=== PATIENT | male | born 1975 | race Caucasian/White ===

== ENCOUNTER 2016-07-08 16:58 | Emergency (ER) | payer OTHER ==
--- NOTE | 2016-07-08 17:46 | DIAGNOSTIC IMAGING REPORT ---
PROCEDURE: CT HEAD WITHOUT CONTRAST INDICATION: Headache. Near-syncope. TECHNIQUE: Noncontrast axial images with sagittal and coronal reformations. COMPARISON: Compared to a head CT on 12/12/2006. FINDINGS: Brain and ventricles are normal. No evidence of an acute process or hemorrhage. Sinuses and mastoids are normal. IMPRESSION: 1. Negative head CT. 2. Findings discussed with Dr. Salgado at [address] scans at this facility use dose modulation, iterative reconstruction, and/or weight-based dosing when appropriate to reduce radiation dose to as low as reasonably achievable.
--- NOTE | 2016-07-08 17:53 | DIAGNOSTIC IMAGING REPORT ---
PROCEDURE: XR CHEST 2 VIEW INDICATION: LIGHTHEADEDNESS TECHNIQUE: PA and lateral views. COMPARISON: Compared to chest x-ray and 02/02/2010. FINDINGS: Allowing for overlying wires and electrodes, lungs are clear. Heart and mediastinum are normal. Thorax is normal. IMPRESSION: 1. Negative chest.
--- NOTE | 2016-07-08 19:04 | ED CLINICAL REPORT ---
Clinical Report - Physicians/Mid Levels [facility] [address] [place] [address] 07/08/2016 16:59 Patient: AMARILIS HUBBARD Time Seen: 17:19. Arrived- By private vehicle. Historian- patient. HISTORY OF PRESENT ILLNESS Chief Complaint: HEADACHE. Is still present. This started just prior to arrival. It was gradual in onset and has been waxing/waning. Onset during light activity; [place] It is described as similar to previous headaches, tightness and pressure. No neck pain. Not located in the facial region. At its maximum, severity described as severe. When seen in the E.D., severity described as moderate. Modifying factors: worsened by general movement; relieved by rest. The patient has had blurred vision. No photophobia, numbness, weakness or vomiting. Similar symptoms previously: Recent medical care: The patient was seen recently at another facility in the emergency department. Seen for similar symptoms. Evaluation/treatment: labs. Diagnosis: (abdominal pain; htn). ( He had an ultrasound of his abdomen yesterday. He has had multiple visits to [facility] ED in past 2 months with extensive work up performed). REVIEW OF SYSTEMS No fever, muscle aches, ear pain, sore throat or chest pain. No difficulty breathing, cough, abdominal pain, diarrhea or pain with urination. No skin rash. He has had sinus pressure and dizziness described as a light-headedness. All systems otherwise negative, except as recorded above. PAST HISTORY Primary physician: Dr Loyd ([facility]). 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 Thyroid disease. Urinary calculi. Surgeries: Coronary Angiogram - done about 6 weeks ago at [facility] (50-75% LAD lesion not felt amenable to stent). Lithotripsy has been performed twice (had lithotrypsy at [facility]) - had stents placed after lithotripsy). SOCIAL HISTORY Smoker- current status unknown. Alcohol use. (rare). History of drug use none for about 2 months: marijuana. Residence: [place]. ADDITIONAL NOTES The nursing notes have been reviewed. PHYSICAL EXAM Vital Signs: 07/08/2016 17:09 BP: 146/79. HR: 93. RR: 18. O2 saturation: 98%. Temp: 98.3 F. Pain level now: 0/10. Appearance: Alert. Patient in mild distress. Head: No tenderness to palpation/percussion over the sinuses or temporal artery tenderness. Eyes: Pupils equal, round and reactive to light. Eyes normal inspection. No conjunctival findings, photophobia or shallow angle. ENT: Pharynx normal. No pharyngeal erythema or tonsillar exudate. Neck: Normal inspection. Neck supple. No meningeal signs or carotid bruit. CVS: Normal heart rate and rhythm. Heart sounds normal. Pulses normal. Respiratory: No respiratory distress. Breath sounds normal. Abdomen: Soft and nontender. Back: Normal inspection. Skin: Skin warm and dry. Normal skin color. No rash. Normal skin turgor. Extremities: Extremities exhibit normal ROM. No lower extremity edema. Neuro: Oriented X 3. Alert. Mood/affect normal. Speech normal. Cranial nerves normal (as tested). No cerebellar findings. No motor deficit. No sensory deficit. Reflexes normal. Reflex exam: right biceps 2+, left biceps 2+, right patellar 2+, left patellar 2+, right Achilles 1+ and left Achilles 1+. LABS, X-RAYS, AND EKG EKG: EKG time: (17:58). No acute process. Normal EKG. Normal sinus rhythm. Rate: 75. Normal P waves. Normal DEEPTHI. Normal QRS complex. Nondiagnostic Q waves in lead III. Normal axis. Normal ST and T waves. The study has been interpreted contemporaneously by me. The EKG appears to be a good tracing. Rhythm Strip #1: Normal sinus rhythm. Regular rhythm. Narrow QRS complexes. No ectopy. Chest X-ray: No acute disease. Normal lung markings present. Normal heart size. Mediastinum normal. Great vessels normal. No infiltrate. Views: PA and lateral. Technique: good. The X-rays were interpreted contemporaneously by me. The X-rays were discussed with the radiologist (via PACS report). CT Head: Normal study. No acute changes. No bony abnormalities, no hemorrhage, no intracranial mass, no midline shift and no hydrocephalus. No atrophy. Head CT performed without contrast. The study was independently viewed by me, interpreted by the radiologist and discussed with the radiologist. Laboratory Tests: UA-Culture if indicated: (MILTON: 07/08/2016 18:00) ( MsgRcvd 07/08/2016 18:21) Final results Test Result Flag Units (Reference) URINE COLOR YELLOW URINE APPEARANCE CLEAR URINE GLUCOSE NEGATIVE (NEGATIVE) URINE BILIRUBIN NEGATIVE (NEGATIVE) URINE KETONE NEGATIVE (NEGATIVE) URINE SPECIFIC GRAVITY 1.015 (1.010-1.030) URINE PH 6.5 (5.0-8.0) URINE PROTEIN NEGATIVE (NEGATIVE) URINE UROBILINOGEN 0.2 EU/dL (0.2-1.0) URINE NITRITE NEGATIVE (NEGATIVE) URINE BLOOD TRACE-INTACT (NEGATIVE) URINE LEUK ESTERASE NEGATIVE (NEGATIVE) URINE RBC 0-1 rbc/hpf (0-1) URINE WBC RARE wbc/hpf (0-1) URINE EPITHELIAL CELLS RARE EPI/hpf (0-5) URINE BACTERIA NONE SEEN (NONE SEEN) URINE COMMENT CULT NOT INDICATED URINE CULTURES ARE SET-UP BASED ON THE FOLLOWING CRITERIA:POSITIVE NITRITEPOSITIVE LEUKOCYTE ESTERASEGREATER THAN 10 WHITE BLOOD CELLSMODERATE (2+) OR GREATER BACTERIA CBC w Diff: (MILTON: 07/08/2016 17:25) ( MsgRcvd 07/08/2016 17:39) Final results Test Result Flag Units (Reference) WHITE BLOOD COUNT 7.3 K/uL (4.5-11.5) RED BLOOD COUNT 4.84 M/uL (4.50-5.90) HEMOGLOBIN 13.9 gm/dL (13.5-17.5) HEMATOCRIT 40.6 L % (41.0-53.0) MEAN CELL VOLUME 84 fL (80-100) MEAN CORPUSCULAR HGB 29 pg (26-34) MEAN CORPUSCULAR HGB CONC 34 g/dL (31-37) RED CELL DISTRIBUTION WIDTH 13.6 % (11.6-14.8) PLATELET COUNT 214 K/uL (150-400) NEUTROPHIL % 48.8 L % (50-75) LYMPH % 43.5 H % (25-40) MONO % 5.9 % (3-14) EOSINOPHIL % 1.1 % (0-4) BASOPHIL % 0.7 % (0-2) PT with INR: (MILTON: 07/08/2016 17:25) ( MsgRcvd 07/08/2016 17:53) Final results Test Result Flag Units (Reference) INR 0.9 (0.8-1.2) Low Intensity Therapy: INR 1.5-2.0 PT range 18.5-23.1Mod.Intensity Therapy: INR 2.0-3.0 PT range 23.1-31.5High Intensity Therapy: INR 2.5-3.5 PT range 27.4-35.5High Intensity Therapy 2: INR 3.0-4.0 PT range 31.5-39.3 D-DIMER QUANTITATIVE < 0.27 L ug/mLFEU (0.27-0.52) The primary value of this quantitative assay relates toits negative predictive value (i.e. exclusion) of pulmonaryembolism/deep vein thrombosis/DIC.Elevated levels of d-dimer may also occur with:, age, cancer, inflammation, liver disease,post-op, infection, hematoma, coronary disease, peripheralarteriopathy, bleeding disorders and thrombolytic treatment.Results should be correlated with other clinical andradiological data.Testing Methodology: Latex Immunoassay Urine Drug Screen: (MILTON: 07/08/2016 18:00) ( MsgRcvd 07/08/2016 18:44) Final results Test Result Flag Units (Reference) AMPHETAMINE/METHAMPHETAMINE NEGATIVE (NEGATIVE) BARBITURATE POSITIVE H (NEGATIVE) BENZODIAZEPINE NEGATIVE (NEGATIVE) CANNABINOID POSITIVE H (NEGATIVE) COCAINE NEGATIVE (NEGATIVE) ECSTASY NEGATIVE (NEGATIVE) METHADONE NEGATIVE (NEGATIVE) OPIATE NEGATIVE (NEGATIVE) The urine drug screen is a qualitative screening test fordrug overdose and abuse. All screen results should beconsidered as presumptive.Drugs screened for are as follows:BenzodiazepinesCocaineAmphetamines/MetamphetaminesTHC (Tetrahydrocannabinol)OpiatesBarbituratesEcstasyMethadonePositive results are unconfirmed. For confirmation, notifythe lab for the specimen to be sent to the reference lab.All confirmations must be performed by a differentmethodology.The ingestion of natural herbal and plant productscontaining Ephedra/Ephedra metabolites can produce in urineone or more substances capable of cross reacting withamphetamine/methamphetamine immunoassays. These testsprovide a preliminary result only. A more specificalternative chemical method must be used to obtain aconfirmed analytical result. BNP: (MILTON: 07/08/2016 17:25) ( [facility] 07/08/2016 17:53) Final results Test Result Flag Units (Reference) B-TYPE NATRIURETIC PEPTIDE < 5.0 L pg/ml (5-100) Amylase: (MILTON: 07/08/2016 17:25) ( [facility] 07/08/2016 18:15) Final results Test Result Flag Units (Reference) AMYLASE 49 U/L (25-115) ETHYL ALCOHOL < 3.0 L mg/dL (3-10) THYROID STIMULATING HORMONE 1.025 uIU/mL (0.34-3.74) CHEM 13 PANEL: (MILTON: 07/08/2016 17:25) ( [facility] 07/08/2016 18:08) Final results Test Result Flag Units (Reference) GLUCOSE 120 H mg/dL (70-110) BUN 18 mg/dL (7-18) CREATININE 0.8 mg/dL (0.6-1.3) Estimated GFR >60 mL/min Estimated GFR- >60 mL/min Note: Persistent reduction over 3 months in eGFR<60 mL/min/1.73 m2 defines CKD. Patients with eGFR values>=60 mL/min/1.73 m2 may also have CKD if evidence ofpersistent proteinuria. Additional information may be foundat www.kidney.org. SODIUM 142 mmol/L (136-145) POTASSIUM 3.7 mmol/L (3.5-5.1) CHLORIDE 103 mmol/L (98-107) CARBON DIOXIDE 33 H mmol/L (21-32) CALCIUM 9.3 mg/dL (8.5-10.1) TOTAL PROTEIN 7.3 g/dL (6.4-8.2) ALBUMIN 4.5 g/dL (3.3-5.0) BILIRUBIN, TOTAL 0.6 mg/dL (0.0-1.0) ALKALINE PHOSPHATASE 64 U/L (46-116) AST (SGOT) 21 U/L (15-37) ALT (SGPT) 42 U/L (12-78) CPK 103 U/L (24-260) MAGNESIUM 1.9 mg/dL (1.8-2.4) LIPASE 95 U/L (73-393) TROPONIN I <0.05 L ng/mL (0.00-1.5) TROPONIN REFERENCE RANGE:<0.1 NEGATIVE0.1-1.5 INDETERMINANT>1.5 POSITIVE . Pulse Oximetry: 07/08/2016 17:09 O2 saturation: 98%. (FIO2 - room air). Interpretation: normal. PROGRESS AND PROCEDURES Course of Care: Normal Saline 1 liter IVPB given. Patient is stable. Physical exam findings are improved. Symptoms much better. Recent extensive w/u at [facility]. Unremarkable w/u t. Patient/family counseled. Old ED records reviewed. ([facility] and [facility] ED records reviewed; [place] with 18 visits to area ED's in past 12 months - 10 visits to area ED's since Jun 01). Disposition: Discharged. Condition: stable and improved. CLINICAL IMPRESSION Chronic headache. Near syncope .12 lead EKG performed. INSTRUCTIONS Do not work for three days. Drink plenty of fluids. Warnings: Further evaluation is necessary in order to conduct further tests and assess the possibility of serious illness. It is very important to follow up with a physician. GENERAL WARNINGS: Return or contact your physician immediately if your condition worsens or changes unexpectedly, if not improving as expected, or if other problems arise. Your Current Medications: CONTINUE TAKING THE FOLLOWING MEDICATIONS: ASA Oral : 81 mg daily. Lisinopril Oral : 2.5 mg daily. Nitroglycerin Translingual : PRN. Zoloft Oral : 12.5 mg daily, just started last week. Follow-up: Follow up with your doctor tomorrow. Follow up with a steel melter and neurologist- as recommended by your primary care physician- Dr Birmingham in about three days. Follow-up with: [facility], , , [address] [place] [address], , [place], Follow up tomorrow as scheduled. (Electronically signed by Kashmir Salgado DO 07/08/2016 22:52)
--- NOTE | 2016-07-08 19:04 | ED CLINICAL REPORT ---
Clinical Report - Physicians/Mid Levels [address] [place] [address] 07/08/2016 16:59 Patient: AMARILIS HUBBARD Time Seen: 17:19. Arrived- By private vehicle. Historian- patient. HISTORY OF PRESENT ILLNESS Chief Complaint: HEADACHE. Is still present. This started just prior to arrival. It was gradual in onset and has been waxing/waning. Onset during light activity; [place] It is described as similar to previous headaches, tightness and pressure. No neck pain. Not located in the facial region. At its maximum, severity described as severe. When seen in the E.D., severity described as moderate. Modifying factors: worsened by general movement; relieved by rest. The patient has had blurred vision. No photophobia, numbness, weakness or vomiting. Similar symptoms previously: Recent medical care: The patient was seen recently at another facility in the emergency department. Seen for similar symptoms. Evaluation/treatment: labs. Diagnosis: (abdominal pain; htn). ( He had an ultrasound of his abdomen yesterday. He has had multiple visits to [facility] ED in past 2 months with extensive work up performed). REVIEW OF SYSTEMS No fever, muscle aches, ear pain, sore throat or chest pain. No difficulty breathing, cough, abdominal pain, diarrhea or pain with urination. No skin rash. He has had sinus pressure and dizziness described as a light-headedness. All systems otherwise negative, except as recorded above. PAST HISTORY Primary physician: Dr Loyd ([facility]). 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 Thyroid disease. Urinary calculi. Surgeries: Coronary Angiogram - done about 6 weeks ago at [facility] (50-75% LAD lesion not felt amenable to stent). Lithotripsy has been performed twice (had lithotrypsy at [facility]) - had stents placed after lithotripsy). SOCIAL HISTORY Smoker- current status unknown. Alcohol use. (rare). History of drug use none for about 2 months: marijuana. Residence: [place]. ADDITIONAL NOTES The nursing notes have been reviewed. PHYSICAL EXAM Vital Signs: 07/08/2016 17:09 BP: 146/79. HR: 93. RR: 18. O2 saturation: 98%. Temp: 98.3 F. Pain level now: 0/10. Appearance: Alert. Patient in mild distress. Head: No tenderness to palpation/percussion over the sinuses or temporal artery tenderness. Eyes: Pupils equal, round and reactive to light. Eyes normal inspection. No conjunctival findings, photophobia or shallow angle. ENT: Pharynx normal. No pharyngeal erythema or tonsillar exudate. Neck: Normal inspection. Neck supple. No meningeal signs or carotid bruit. CVS: Normal heart rate and rhythm. Heart sounds normal. Pulses normal. Respiratory: No respiratory distress. Breath sounds normal. Abdomen: Soft and nontender. Back: Normal inspection. Skin: Skin warm and dry. Normal skin color. No rash. Normal skin turgor. Extremities: Extremities exhibit normal ROM. No lower extremity edema. Neuro: Oriented X 3. Alert. Mood/affect normal. Speech normal. Cranial nerves normal (as tested). No cerebellar findings. No motor deficit. No sensory deficit. Reflexes normal. Reflex exam: right biceps 2+, left biceps 2+, right patellar 2+, left patellar 2+, right Achilles 1+ and left Achilles 1+. LABS, X-RAYS, AND EKG EKG: EKG time: (17:58). No acute process. Normal EKG. Normal sinus rhythm. Rate: 75. Normal P waves. Normal DEEPTHI. Normal QRS complex. Nondiagnostic Q waves in lead III. Normal axis. Normal ST and T waves. The study has been interpreted contemporaneously by me. The EKG appears to be a good tracing. Rhythm Strip #1: Normal sinus rhythm. Regular rhythm. Narrow QRS complexes. No ectopy. Chest X-ray: No acute disease. Normal lung markings present. Normal heart size. Mediastinum normal. Great vessels normal. No infiltrate. Views: PA and lateral. Technique: good. The X-rays were interpreted contemporaneously by me. The X-rays were discussed with the radiologist (via PACS report). CT Head: Normal study. No acute changes. No bony abnormalities, no hemorrhage, no intracranial mass, no midline shift and no hydrocephalus. No atrophy. Head CT performed without contrast. The study was independently viewed by me, interpreted by the radiologist and discussed with the radiologist. Laboratory Tests: UA-Culture if indicated: (MILTON: 07/08/2016 18:00) ( MsgRcvd 07/08/2016 18:21) Final results Test Result Flag Units (Reference) URINE COLOR YELLOW URINE APPEARANCE CLEAR URINE GLUCOSE NEGATIVE (NEGATIVE) URINE BILIRUBIN NEGATIVE (NEGATIVE) URINE KETONE NEGATIVE (NEGATIVE) URINE SPECIFIC GRAVITY 1.015 (1.010-1.030) URINE PH 6.5 (5.0-8.0) URINE PROTEIN NEGATIVE (NEGATIVE) URINE UROBILINOGEN 0.2 EU/dL (0.2-1.0) URINE NITRITE NEGATIVE (NEGATIVE) URINE BLOOD TRACE-INTACT (NEGATIVE) URINE LEUK ESTERASE NEGATIVE (NEGATIVE) URINE RBC 0-1 rbc/hpf (0-1) URINE WBC RARE wbc/hpf (0-1) URINE EPITHELIAL CELLS RARE EPI/hpf (0-5) URINE BACTERIA NONE SEEN (NONE SEEN) URINE COMMENT CULT NOT INDICATED URINE CULTURES ARE SET-UP BASED ON THE FOLLOWING CRITERIA:POSITIVE NITRITEPOSITIVE LEUKOCYTE ESTERASEGREATER THAN 10 WHITE BLOOD CELLSMODERATE (2+) OR GREATER BACTERIA CBC w Diff: (MILTON: 07/08/2016 17:25) ( MsgRcvd 07/08/2016 17:39) Final results Test Result Flag Units (Reference) WHITE BLOOD COUNT 7.3 K/uL (4.5-11.5) RED BLOOD COUNT 4.84 M/uL (4.50-5.90) HEMOGLOBIN 13.9 gm/dL (13.5-17.5) HEMATOCRIT 40.6 L % (41.0-53.0) MEAN CELL VOLUME 84 fL (80-100) MEAN CORPUSCULAR HGB 29 pg (26-34) MEAN CORPUSCULAR HGB CONC 34 g/dL (31-37) RED CELL DISTRIBUTION WIDTH 13.6 % (11.6-14.8) PLATELET COUNT 214 K/uL (150-400) NEUTROPHIL % 48.8 L % (50-75) LYMPH % 43.5 H % (25-40) MONO % 5.9 % (3-14) EOSINOPHIL % 1.1 % (0-4) BASOPHIL % 0.7 % (0-2) PT with INR: (MILTON: 07/08/2016 17:25) ( MsgRcvd 07/08/2016 17:53) Final results Test Result Flag Units (Reference) INR 0.9 (0.8-1.2) Low Intensity Therapy: INR 1.5-2.0 PT range 18.5-23.1Mod.Intensity Therapy: INR 2.0-3.0 PT range 23.1-31.5High Intensity Therapy: INR 2.5-3.5 PT range 27.4-35.5High Intensity Therapy 2: INR 3.0-4.0 PT range 31.5-39.3 D-DIMER QUANTITATIVE < 0.27 L ug/mLFEU (0.27-0.52) The primary value of this quantitative assay relates toits negative predictive value (i.e. exclusion) of pulmonaryembolism/deep vein thrombosis/DIC.Elevated levels of d-dimer may also occur with:, age, cancer, inflammation, liver disease,post-op, infection, hematoma, coronary disease, peripheralarteriopathy, bleeding disorders and thrombolytic treatment.Results should be correlated with other clinical andradiological data.Testing Methodology: Latex Immunoassay Urine Drug Screen: (MILTON: 07/08/2016 18:00) ( MsgRcvd 07/08/2016 18:44) Final results Test Result Flag Units (Reference) AMPHETAMINE/METHAMPHETAMINE NEGATIVE (NEGATIVE) BARBITURATE POSITIVE H (NEGATIVE) BENZODIAZEPINE NEGATIVE (NEGATIVE) CANNABINOID POSITIVE H (NEGATIVE) COCAINE NEGATIVE (NEGATIVE) ECSTASY NEGATIVE (NEGATIVE) METHADONE NEGATIVE (NEGATIVE) OPIATE NEGATIVE (NEGATIVE) The urine drug screen is a qualitative screening test fordrug overdose and abuse. All screen results should beconsidered as presumptive.Drugs screened for are as follows:BenzodiazepinesCocaineAmphetamines/MetamphetaminesTHC (Tetrahydrocannabinol)OpiatesBarbituratesEcstasyMethadonePositive results are unconfirmed. For confirmation, notifythe lab for the specimen to be sent to the reference lab.All confirmations must be performed by a differentmethodology.The ingestion of natural herbal and plant productscontaining Ephedra/Ephedra metabolites can produce in urineone or more substances capable of cross reacting withamphetamine/methamphetamine immunoassays. These testsprovide a preliminary result only. A more specificalternative chemical method must be used to obtain aconfirmed analytical result. BNP: (MILTON: 07/08/2016 17:25) ( [facility] Final results Test Result Flag Units (Reference) B-TYPE NATRIURETIC PEPTIDE < 5.0 L pg/ml (5-100) Amylase: (MILTON: 07/08/2016 17:25) ( [facility] 18[facility]15) Final results Test Result Flag Units (Reference) AMYLASE 49 U/L (25-115) ETHYL ALCOHOL < 3.0 L mg/dL (3-10) THYROID STIMULATING HORMONE 1.025 uIU/mL (0.34-3.74) CHEM 13 PANEL: (MILTON: 07/08/2016 17:25) ( [facility]08) Final results Test Result Flag Units (Reference) GLUCOSE 120 H mg/dL (70-110) BUN 18 mg/dL (7-18) CREATININE 0.8 mg/dL (0.6-1.3) Estimated GFR >60 mL/min Estimated GFR- >60 mL/min Note: Persistent reduction over 3 months in eGFR<60 mL/min/1.73 m2 defines CKD. Patients with eGFR values>=60 mL/min/1.73 m2 may also have CKD if evidence ofpersistent proteinuria. Additional information may be foundat www.kidney.org. SODIUM 142 mmol/L (136-145) POTASSIUM 3.7 mmol/L (3.5-5.1) CHLORIDE 103 mmol/L (98-107) CARBON DIOXIDE 33 H mmol/L (21-32) CALCIUM 9.3 mg/dL (8.5-10.1) TOTAL PROTEIN 7.3 g/dL (6.4-8.2) ALBUMIN 4.5 g/dL (3.3-5.0) BILIRUBIN, TOTAL 0.6 mg/dL (0.0-1.0) ALKALINE PHOSPHATASE 64 U/L (46-116) AST (SGOT) 21 U/L (15-37) ALT (SGPT) 42 U/L (12-78) CPK 103 U/L (24-260) MAGNESIUM 1.9 mg/dL (1.8-2.4) LIPASE 95 U/L (73-393) TROPONIN I <0.05 L ng/mL (0.00-1.5) TROPONIN REFERENCE RANGE:<0.1 NEGATIVE0.1-1.5 INDETERMINANT>1.5 POSITIVE . Pulse Oximetry: 07/08/2016 17:09 O2 saturation: 98%. (FIO2 - room air). Interpretation: normal. PROGRESS AND PROCEDURES Course of Care: Normal Saline 1 liter IVPB given. Patient is stable. Physical exam findings are improved. Symptoms much better. Recent extensive w/u at [facility]. Unremarkable w/u t. Patient/family counseled. Old ED records reviewed. ([facility] and [facility] ED records reviewed; [place] with 18 visits to area ED's in past 12 months - 10 visits to area ED's since Jun 01). Disposition: Discharged. Condition: stable and improved. CLINICAL IMPRESSION Chronic headache. Near syncope .12 lead EKG performed. INSTRUCTIONS Do not work for three days. Drink plenty of fluids. Warnings: Further evaluation is necessary in order to conduct further tests and assess the possibility of serious illness. It is very important to follow up with a physician. GENERAL WARNINGS: Return or contact your physician immediately if your condition worsens or changes unexpectedly, if not improving as expected, or if other problems arise. Your Current Medications: CONTINUE TAKING THE FOLLOWING MEDICATIONS: ASA Oral : 81 mg daily. Lisinopril Oral : 2.5 mg daily. Nitroglycerin Translingual : PRN. Zoloft Oral : 12.5 mg daily, just started last week. Follow-up: Follow up with your doctor tomorrow. 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 Follow-up with: [facility], , , [address] [place] [address], , [place], Follow up tomorrow as scheduled. (Electronically signed by Kashmir Salgado DO 07/08/2016 22:52)
--- NOTE | 2016-07-08 19:05 | ED ORDER SUMMARY ---
..... Patient: AMARILIS HUBBARD OrderSheet [facility] VisitID: [id number] [address] [place] [address] 40y, M Registration Date/Time: 07/08/2016 ORDER SHEET Weight: 74.8 kg (stated) Allergies: Penicillins GENERAL ORDERS: Chest 2V Urgent (17:07/08/2016 PHutchinson DO) (Ack 17:46 LTapper) (17:56 SRoberts R.N.) Kelp Or Seagrass Gatherer (Continuous) (:07/08/2016 PHutchinson DO) (17:45 SRoberts R.N.) CT Head wo Cont Urgent (:07/08/2016 PHutchinson DO) (Ack 17:46 LTapper) (17:56 SRoberts R.N.) Old Records (from [facility] - ED visit yesterday; any cardiac work up) (:07/08/2016 PHutchinson DO) (Ack 17:46 LTapper) (19:26 SRoberts R.N.) UA-Culture if indicated Urgent (:07/08/2016 PHutchinson DO) (Ack 17:46 LTapper) (18:07 Ellen) Cardiac Panel Stat (:07/08/2016 PHutchinson DO) (Ack 17:46 LTapper) (17:55 SRoberts R.N.) BNP Urgent (:07/08/2016 PHutchinson DO) (Ack 17:46 LTapper) (17:55 SRoberts R.N.) D-Dimer Urgent (17:07/08/2016 PHutchinson DO) (Ack 17:46 LTapper) (17:55 SRoberts R.N.) Amylase Urgent (:07/08/2016 PHutchinson DO) (Ack 17:46 LTapper) (17:55 SRoberts R.N.) PT with INR Urgent (:07/08/2016 PHutchinson DO) (Ack 17:46 LTapper) (17:55 SRoberts R.N.) TSH Urgent (:07/08/2016 [facility]) (Ack 17:46 LTapper) (17:55 SRoberts R.N.) Ethyl Alcohol Urgent (17:30 07/08/2016 [facility]) (Ack 17:46 LTapper) (17:55 SRoberts R.N.) Pulse oximeter (17:30 07/08/2016 [facility]) (17:45 SRoberts R.N.) EKG - ER Stat (17:30 07/08/2016 [facility]) (Ack 17:46 LTapper) (17:55 SRoberts R.N.) Vitals (17:30 07/08/2016 [facility]) (17:45 SRoberts R.N.) Urine Drug Screen Urgent (17:39 07/08/2016 [facility]) (Ack 17:46 LTapper) (18:07 RKaruga) Lipase Urgent (17:40 07/08/2016 [facility]) (Ack 17:46 LTapper) (17:55 SRoberts R.N.) MEDICATION ORDERS: IV FLUIDS: IV Saline Lock (17:30 07/08/2016 [facility]) (17:54 SRoberts R.N.) IV NS : initial bolus 500 mL (1000 mL/hr), then 500 mL/hr for X1 (NOW) (17:30 07/08/2016 [facility]) (17:55 SRoberts R.N.) ORDER SHEET NOTES: [Electronically signed by Inna Viveros R.N. (19:27 07/08/2016)] [Electronically signed by Kashmir Salgado DO (22:52 07/08/2016)] [Electronically locked/signed by Inna Viveros R.N. (19:27 07/08/2016)]
--- NOTE | 2016-07-08 19:05 | ED NURSING NOTES ---
Clinical Report - Nurses [place] [address] [place] [address] 07/08/2016 16:59 Patient: AMARILIS HUBBARD TRIAGE Triage time 17:10. Acuity: LEVEL 3. Chief Complaint: HEADACHE and ("pressure in head"). Alert. DEVENDRA COMA SCORE: [place] Coma Scale: 15- eyes open spontaneously (4); best verbal response- oriented x 4 (5); best motor response- obeys commands (6). --17:18 Caitlin Lacey R.N. 17:09 07/08/16. BP: 146/79. HR: 93. RR: 18. O2 saturation: 98% on room air. Temp: 98.3 F (oral). Pain level now: 0/10. Additional comments: denies pain, it's just "pressure". --17:18 Caitlin Lacey R.N. Weight: 74.8 kg stated. Height/Length: 69 inches Per Patient. BMI: 24.4. --17:17 Caitlin Lacey R.N. Medications Lisinopril Oral 2.5 mg, daily. --17:12 Caitlin Lacey R.N. ASA Oral 81 mg, daily. --17:12 Caitlin Lacey R.N. Nitroglycerin Translingual, PRN. --17:18 Caitlin Lacey R.N. Zoloft Oral 12.5 mg, daily (just started last week). --17:19 Caitlin Lacey R.N. The following entry was struck and corrected by Caitlin Lacey R.N., 17:14 (07/08/16) Reason for correction - other(correction). <<STRICKEN ENTRY-- Lisinopril Oral. --17:12 Caitlin Lacey R.N. --END STRIKE>> The following entry was struck and corrected by Caitlin Lacey R.N., 17:14 (07/08/16) Reason for correction - other(correction). <<STRICKEN ENTRY-- ASA Oral. --17:12 Caitlin Lacey R.N. --END STRIKE>>. Medication/allergy information source: the patient. --17:18 Caitlin Lacey R.N. Allergies Penicillins. --17:14 Caitlin Lacey R.N. History Arrived by private vehicle. Historian: patient. Accompanied by family. Primary physician (Rach). This started intermittent since March. SOCIAL HX: Smoker- current status unknown (no). History of drug use. Is a recovering addict. (clean for almost 2 years). No alcohol use. FALL RISK ASSESSMENT: Fall risk assessment completed. No fall risk identified. FUNCTIONAL ASSESSMENT: Functional assessment: no impairments noted. LEARNING NEEDS ASSESSMENT: The learning needs assessment revealed no barriers. --17:18 Caitlin Lacey R.N. PROBLEMS: Sprain. Nephrolithiasis. Thyroid Disease. Hypertension. --17:15 Caitlin Lacey R.N. Anxiety Reaction. --17:17 Caitlin Lacey R.N. ADDITIONAL SURGERIES: Kidney stents. Lithotripsy. --17:15 Caitlin Lacey R.N. Assessment GENERAL / NEURO / PSYCH: The patient is awake and alert, is oriented and cooperative and appears uncomfortable. He has good eye contact. RESPIRATORY: Respirations not labored. SKIN: Skin is warm and dry. --17:18 Caitlin Lacey R.N. Interventions ID and allergy band on patient. To treatment room. --17:18 Caitlin Lacey R.N. PHYSICAL ASSESSMENT 17:20 07/08/16. Ambulatory to room. Patient gowned. GENERAL / NEURO / PSYCH: The patient is awake and alert, is oriented and cooperative and appears uncomfortable. He has good eye contact. RESPIRATORY: Respirations not labored. CVS: Cardiac rhythm: sinus rhythm. SKIN: Skin is warm and dry. --17:20 Caitlin Lacey R.N. NURSING PROGRESS NOTES 17:21 07/08/16. teacher emotionally impaired, pulse oximeter and NIBP monitor placed on patient. Patient gowned. Head of bed elevated. Call light placed in reach. Side rails up x 2. Bed placed in lowest position. Brakes of bed on. --17:21 Caitlin Lacey R.N. 17:39 07/08/2016 Site #1 started via IV in the right antecubital space with an 20g angiocath, with aseptic technique and good blood return; one attempt. Blood drawn: rainbow set. Labeled in the presence of the patient and sent to the lab. Saline lock flushed with 10 mL saline. --17:54 Inna Viveros R.N. 17:55 07/08/2016 Started bag #1 1000 mL IV Fluids IV NS (Saline); bolus of 500 mL over 30 minute(s) then at 500 mL/hr over 1 hour(s) via site #1 via IV pump. Allergies verified and confirmed 5 rights. IV patency established. IV site checked: no pain, redness, or swelling. IV flushed thoroughly pre- and post-medication administration. --17:55 Inna Viveros R.N. EKG time: (17:58 PM). EKG was performed by a tech and shown to the ED physician. --18:00 Jania Simmons 18:00. Patient ID band checked for patient name and birthdate: patient confirmed. Instructions provided to collect clean catch urine and patient verbalized understanding urine collected with return of yellow-colored clear urine; odor is normal; sample sent to lab for urinalysis and culture. Specimen labeled in the presence of the patient. --18:06 Jania Simmons 18:33 07/08/2016 IV Fluids IV NS via IV site #1 Rate Changed: bag #1 decreased to 500 mL/hr via IV pump. IV patency established. IV site checked: no pain, redness, or swelling. IV flushed thoroughly. --18:33 Inna Viveros R.N. Patient returned from radiology and CT by stretcher with tech. (1800). --19:23 Inna Viveros R.N. 19:10 07/08/2016 IV Fluids IV NS Discontinued: bag #1 infused. Total amount infused: 1000 mL. IV patency established. IV site checked: no pain, redness, or swelling. IV flushed thoroughly. --19:26 Inna Viveros R.N. DISPOSITION / DISCHARGE 19:10 07/08/2016 Site #1 removed upon discharge. Catheter intact. Bandaid applied. --19:23 Inna Viveros R.N. 19:15. Condition at departure: improved. No learning barriers present. Discharge instructions provided and reviewed with the patient and spouse. Work note given. Patient verbalized understanding. Written instructions provided in [place]. The patient was discharged home and accompanied by spouse. He left the Emergency Department ambulatory and via private vehicle. Patient driving. Medication list reviewed and validated. --19:26 Inna Viveros R.N. 19:15 07/08/16. BP: 126/81. HR: 85. RR: 20. O2 saturation: 100% on room air. Temp: deferred. 18:10 07/08/16. BP: 122/78. HR: 79. RR: 16. O2 saturation: 100% on nasal cannula at 2 liters/minute. 17:09 07/08/16. BP: 146/79. HR: 93. RR: 18. O2 saturation: 98% on room air. Temp: 98.3 F (oral). Pain level now: 0/10. Additional comments: denies pain, it's just "pressure". --19:26 Inna Viveros R.N. Departure time: 1914. --19:26 Inna Viveros R.N. Locked/Released at 07/08/2016 19:27 by Inna Viveros R.N.
--- NOTE | 2016-07-08 19:05 | ED ORDER SUMMARY ---
..... Patient: AMARILIS HUBBARD OrderSheet [facility] VisitID: [id number] [address] [place] [address] 40y, M Registration Date/Time: 07/08/2016 ORDER SHEET Weight: 74.8 kg (stated) Allergies: Penicillins GENERAL ORDERS: Chest 2V Urgent (17:07/08/2016 PHutchinson DO) (Ack 17:46 LTapper) (17:56 SRoberts R.N.) Automatic Punch Press Operator (Continuous) (:07/08/2016 PHutchinson DO) (17:45 SRoberts R.N.) CT Head wo Cont Urgent (:07/08/2016 PHutchinson DO) (Ack 17:46 LTapper) (17:56 SRoberts R.N.) Old Records (from [facility] - ED visit yesterday; any cardiac work up) (:07/08/2016 PHutchinson DO) (Ack 17:46 LTapper) (19:26 SRoberts R.N.) UA-Culture if indicated Urgent (:07/08/2016 PHutchinson DO) (Ack 17:46 LTapper) (18:07 Ellen) Cardiac Panel Stat (:07/08/2016 PHutchinson DO) (Ack 17:46 LTapper) (17:55 SRoberts R.N.) BNP Urgent (:07/08/2016 PHutchinson DO) (Ack 17:46 LTapper) (17:55 SRoberts R.N.) D-Dimer Urgent (17:07/08/2016 PHutchinson DO) (Ack 17:46 LTapper) (17:55 SRoberts R.N.) Amylase Urgent (:07/08/2016 PHutchinson DO) (Ack 17:46 LTapper) (17:55 SRoberts R.N.) PT with INR Urgent (:07/08/2016 PHutchinson DO) (Ack 17:46 LTapper) (17:55 SRoberts R.N.) TSH Urgent (:07/08/2016 [facility]) (Ack 17:46 LTapper) (17:55 SRoberts R.N.) Ethyl Alcohol Urgent (17:30 07/08/2016 [facility]) (Ack 17:46 LTapper) (17:55 SRoberts R.N.) Pulse oximeter (17:30 07/08/2016 [facility]) (17:45 SRoberts R.N.) EKG - ER Stat (17:30 07/08/2016 [facility]) (Ack 17:46 LTapper) (17:55 SRoberts R.N.) Vitals (17:30 07/08/2016 [facility]) (17:45 SRoberts R.N.) Urine Drug Screen Urgent (17:39 07/08/2016 [facility]) (Ack 17:46 LTapper) (18:07 RKaruga) Lipase Urgent (17:40 07/08/2016 [facility]) (Ack 17:46 LTapper) (17:55 SRoberts R.N.) MEDICATION ORDERS: IV FLUIDS: IV Saline Lock (17:30 07/08/2016 [facility]) (17:54 SRoberts R.N.) IV NS : initial bolus 500 mL (1000 mL/hr), then 500 mL/hr for X1 (NOW) (17:30 07/08/2016 [facility]) (17:55 SRoberts R.N.) ORDER SHEET NOTES: [Electronically signed by Inna Viveros R.N. (19:27 07/08/2016)] [Electronically signed by Kashmir Salgado DO (22:52 07/08/2016)] [Electronically locked/signed by Inna Viveros R.N. (19:27 07/08/2016)]
--- NOTE | 2016-07-08 22:52 | ED DISCHARGE INSTRUCTIONS ---
Patient: AMARILIS HUBBARD General Instructions [facility] VisitID: [id number] [place] [address] 40y, M Registration Date/Time: 07/08/2016 Chronic headache. Near syncope .12 lead EKG performed. INSTRUCTIONS Do not work for three days. Drink plenty of fluids. Warnings: Further evaluation is necessary in order to conduct further tests and assess the possibility of serious illness. It is very important to follow up with a physician. GENERAL WARNINGS: Return or contact your physician immediately if your condition worsens or changes unexpectedly, if not improving as expected, or if other problems arise. Your Current Medications: CONTINUE TAKING THE FOLLOWING MEDICATIONS: ASA Oral : 81 mg daily. Lisinopril Oral : 2.5 mg daily. Nitroglycerin Translingual : PRN. Zoloft Oral : 12.5 mg daily, just started last week. Follow-up: Follow up with your doctor tomorrow. Follow up with a client services analyst and neurologist- as recommended by your primary care physician- Dr Birmingham in about three days. Follow-up with: [facility], , , [address] [place] [address], , [place], Follow up tomorrow as scheduled. ADDITIONAL INFORMATION Headache [Unspecified] The cause of your headache today is not clear, but it does not appear to be the sign of any serious illness. Under stress, some people tense the muscles of their shoulder, neck and scalp without knowing it. If this condition lasts long enough, a TENSION HEADACHE can occur. A MIGRAINE HEADACHE is caused by changes in blood flow to the brain. A migraine attack may be triggered by emotional stress, hormone changes during the menstrual cycle, oral contraceptives, alcohol use, certain foods containing tyramine, eye strain, weather changes, missing meals, lack of sleep or oversleeping. Other causes of headache include a viral illness with high fever, head injury with concussion, sinus, ear or throat infection, dental pain and TMJ (jaw joint) pain. More serious but less common causes of headache include stroke, brain hemorrhage, brain tumor, meningitis and encephalitis. Home Care: If you were given pain medicine for this headache, do not drive yourself home. Arrange for a ride, instead. When you get home, try to sleep. You should feel much better when you wake up. Apply heat to the back of your neck to relieve neck muscle spasm. Migraine headaches may respond best to an ice pack on the forehead or at the base of the skull. If you are having nausea or vomiting, follow a light diet until your headache is relieved. If you have a migraine type headache, use sunglasses when in the daylight or around bright indoor lighting until symptoms improve. Bright glaring light can worsen this kind of headache. Follow Up with your doctor if the headache is not better within the next 24 hours. If you have frequent headaches you should discuss a treatment plan with your primary care doctor. By being aware of the earliest signs of headache, and starting treatment right away, you may be able to stop the pain yourself. Get Prompt Medical Attention if any of the following occur: Worsening of your head pain or no improvement within 24 hours Repeated vomiting (unable to keep liquids down) Fever of 100.4F (38C) or higher, or as directed by your healthcare provider Stiff neck Extreme drowsiness, confusion or fainting Dizziness, vertigo (dizziness with spinning sensation) Weakness of an arm or leg or one side of the face Difficulty with speech or vision Near-Fainting:Uncertain Cause Fainting (syncope) is a temporary loss of consciousness ("passing out"). It occurs when blood flow to the brain is reduced. Near-fainting ("near-syncope") is like fainting, but you do not fully "pass out." The common minor causes of near fainting include sudden fear, pain, emotional stress, overexertion, or quickly standing up after sitting or lying for a long time. The more serious causes for near fainting are due to either a very slow or very fast heart beat, dehydration, anemia, blood loss, problems related to the heart, or taking too much high blood pressure medicine. The exact cause of your episode is not certain. More tests may be required. Therefore, it is important that you follow up with your doctor as advised. Home Care: 1) Rest today. Resume your normal activities as soon as you are feeling back to normal. 2) If you become light-headed or dizzy, lie down right away or sit with your head between your knees. 3) Because we do not know the exact cause of your near fainting spell, another spell could occur without warning. Therefore, do not drive a car or use dangerous equipment. D o not take a bath alone (use a shower instead). Do not swim alone. You can resume these activities when your doctor says that you are no longer in danger of having a near fainting spell. 4) Stay well hydrated by drinking enough fluid each day. Follow Up with your doctor as instructed. Get Prompt Medical Attention if any of the following occur: -- Another fainting spell occurs, and it is not explained by the common causes listed above -- Chest, arm, neck, jaw, back or abdominal pain -- Shortness of breath -- Weakness, tingling or numbness in one side of the face, one arm or leg -- Slurred speech, confusion, trouble walking or seeing -- Seizure -- Blood in vomit, stools (black or red color) -- (In women) unexpected vaginal bleeding You have been given the following additional information: Headache, Unspecified Near Syncope, Unknown Do not work for three days. (Electronically signed by Kashmir Salgado DO 07/08/2016 22:52)
--- NOTE | 2016-07-08 22:53 | ED MAR SUMMARY ---
..... Medication Administration Record [facility] [address] [place] [address] Patient: AMARILIS HUBBARD Visit ID: [id number] 40y, M Weight: 74.8 kg Height/Length: 69 in BMI: 24.4 ALLERGIES: Penicillins Start 17:55 07/08/2016 Inna Viveros R.N., Stop 19:10 07/08/2016 Inna Viveros R.N. Medication Administered: IV NS (SALINE), Dose: IV Fluids over 1 hour(s), Rate: 500 mL/hr, Bolus: 500 mL over 30 minute(s), Dispensed: 1000 mL bag, Site: #1 right AC. Medication Ordered: IV NS : initial bolus 500 mL (1000 mL/hr), then 500 mL/hr for X1 (NOW).
--- NOTE | 2016-07-08 22:53 | ED MED RECONCILIATION SUMMARY ---
Patient: AMARILIS HUBBARD Medication Reconciliation Report [facility] VisitID: [id number] [address] [place] [address] 40y, M Registration Date/Time: 07/08/2016 Weight: 74.8 kg Height/Length: 69 in. BMI: 24.4 ALLERGIES: Penicillins The patient's Home Medications are listed below: CONTINUE TAKING THE FOLLOWING MEDICATIONS: ASA Oral 81 mg, daily Lisinopril Oral 2.5 mg, daily Nitroglycerin Translingual, PRN Zoloft Oral 12.5 mg, daily, just started last week The source(s) of the original Home Medication information: patient The following Medications were given to the patient in the Emergency Department: IV NS IV Fluids bolus 500 mL over 30 minute(s), then 500 mL/hr, administered: 07/08/2016 5:55:00 PM The following Medications were prescribed to the patient: None.
--- NOTE | 2016-07-08 22:53 | ED MED RECONCILIATION SUMMARY ---
Patient: AMARILIS HUBBARD Medication Reconciliation Report [facility] VisitID: [id number] [address] [place] [address] 40y, M Registration Date/Time: 07/08/2016 Weight: 74.8 kg Height/Length: 69 in. BMI: 24.4 ALLERGIES: Penicillins The patient's Home Medications are listed below: CONTINUE TAKING THE FOLLOWING MEDICATIONS: ASA Oral 81 mg, daily Lisinopril Oral 2.5 mg, daily Nitroglycerin Translingual, PRN Zoloft Oral 12.5 mg, daily, just started last week The source(s) of the original Home Medication information: patient The following Medications were given to the patient in the Emergency Department: IV NS IV Fluids bolus 500 mL over 30 minute(s), then 500 mL/hr, administered: 07/08/2016 5:55:00 PM The following Medications were prescribed to the patient: None.
--- NOTE | 2016-07-08 22:53 | ED MAR SUMMARY ---
..... Medication Administration Record [facility] [address] [place] [place] [address] Patient: AMARILIS HUBBARD Visit ID: [id number] 40y, M Weight: 74.8 kg Height/Length: 69 in BMI: 24.4 ALLERGIES: Penicillins Start 17:55 07/08/2016 Inna Viveros R.N., Stop 19:10 07/08/2016 Inna Viveros R.N. Medication Administered: IV NS (SALINE), Dose: IV Fluids over 1 hour(s), Rate: 500 mL/hr, Bolus: 500 mL over 30 minute(s), Dispensed: 1000 mL bag, Site: #1 right AC. Medication Ordered: IV NS : initial bolus 500 mL (1000 mL/hr), then 500 mL/hr for X1 (NOW).
== END 2016-07-08 19:15 | disposition home or self-care (01) ==
LOC: ED SRH 16:58
DX: R51 Headache (principal); G89.29 Other chronic pain; R55 Syncope and collapse; I10 Essential (primary) hypertension; E07.9 Disorder of thyroid, unspecified; Z88.0 Allergy status to penicillin
CPT/HCPCS: 90004; 90100; 90616; 91320; 91556; 92010; 92235; 92530; 92610; 92720; 92760; 92761; 92762; 92763; 92764; 92765; 92766; 92767; 93140; 94060; 95059